=== PATIENT | male | born 2000 | race Caucasian/White ===

== ENCOUNTER 2020-09-27 23:44 | Emergency (ER) | payer OTHER ==
[2020-09-28] MEDS ORDERED: LODINE CAP 300300 MG PO (02:03)
== END 2020-09-28 02:15 | disposition home or self-care (01) ==
LOC: ER1 23:44
DX: S80.811A Abrasion, right lower leg, initial encounter (principal); R51.9 Headache, unspecified; F17.210 Nicotine dependence, cigarettes, uncomplicated; Z88.1 Allergy status to other antibiotic agents; V49.40XA Driver injured in collision with unspecified motor vehicles in traffic accident, initial encounter; W22.11XA Striking against or struck by driver side automobile airbag, initial encounter
CPT/HCPCS: 73590; 99284